=== PATIENT | female | born 1955 | race Caucasian/White ===

== ENCOUNTER → 2018-01-18 | Outpatient (CLI) | payer OTHER | LOC: M.RAD 01-07 11:54 | DX: Z12.31 Encounter for screening mammogram for malignant neoplasm of breast (principal); M85.89 Other specified disorders of bone density and structure, multiple sites; Z78.0 Asymptomatic menopausal state ==

== ENCOUNTER → 2019-03-22 | Outpatient (CLI) | payer OTHER ==
--- NOTE | 2019-03-27 23:03 | SLEEP ---
[address] [address] SLEEP STUDY REPORT Name: MORENITA SANCHEZ Room: [facility]#: [id number] Admission: 03/22/19 Attend Phys: Emy Rodríguez DO Discharge: Date of : 59 Report #: [id number] THIS REPORT FOR: //name// CC: Emy Rodríguez DO This study has been reviewed in its entirety by a board certified sleep specialist DATE OF SERVICE: 03/22/2019 HOME SLEEP STUDY ATTENDING PHYSICIAN: Emy Rodríguez MD The patient is a 63-year-old who weighs 165 pounds with a BMI of 25.8. The patient underwent home sleep study, performed at [facility]. Total recording time was 294 minutes. During the night study, the patient had no central obstructive or mixed apneas. There were no hypopneas. The patient's apnea hypopnea index was 0 per hour. Nocturnal oximetry study revealed an average oxygen saturation of 94% with the lowest of 88%. Only 0.2 minutes were spent in oxygen saturation of less than 90%. Mean heart rate 71 beats per minute. IMPRESSION: 1. No clinically significant sleep disorder breathing. The patient's AHI for the entire night was 0 per hour. 2. No clinically significant nocturnal hypoxia. RECOMMENDATIONS: 1. The patient did not meet the criteria for CPAP initiation. The patient had no evidence of sleep disorder breathing. 2. Avoid [employer] depressants. <ELECTRONICALLY SIGNED> By: Breezy Martines MD 03/27/19 2303 [id number] 1848Alupe Martines MD /nt
== END ==
LOC: M.SLEEPLAB 09:46
DX: G47.10 Hypersomnia, unspecified (principal); G47.9 Sleep disorder, unspecified; R06.83 Snoring; R53.83 Other fatigue; R40.0 Somnolence

== ENCOUNTER → 2020-09-23 | Outpatient (CLI) | payer OTHER | LOC: M.RAD 09-03 14:26 | PROVIDERS: ATTEND Nurse Practitioner Family | DX: Z12.31 Encounter for screening mammogram for malignant neoplasm of breast (principal); K76.0 Fatty (change of) liver, not elsewhere classified; R14.0 Abdominal distension (gaseous); R19.5 Other fecal abnormalities; R91.1 Solitary pulmonary nodule; K42.9 Umbilical hernia without obstruction or gangrene; K57.30 Diverticulosis of large intestine without perforation or abscess without bleeding ==

== ENCOUNTER → 2020-10-09 | Outpatient (CLI) | payer OTHER | LOC: M.CT 11:00 | PROVIDERS: ATTEND Nurse Practitioner Family | DX: R91.8 Other nonspecific abnormal finding of lung field (principal); J98.4 Other disorders of lung ==